=== PATIENT | female | born 1985 | race Caucasian/White ===

== ENCOUNTER 2018-01-14 11:04 | Observation (INO) | payer OTHER, MEDICAID ==
[2018-01-14 11:47] LABS: ADD MAN DIFF? NO
[2018-01-14 11:49] LABS: WHITE BLOOD COUNT 9.7 10^3/ul (4.8-10.8)
[2018-01-14 11:49] LABS: BASOPHIL # 0.1 10^3/ul (0.0-0.1); BASOPHILS % 1.2 % (0.0-2.0); EOSINOPHILS # 0.6 10^3/ul (0.0-0.5); EOSINOPHILS % 5.7 % (0.0-7.0); HEMATOCRIT 46.5 % (37.0-47.0); HEMOGLOBIN 14.5 g/dl (12.0-16.0); LYMPHOCYTES # 3.4 10^3/ul (0.8-2.9); MEAN CORPUSCULAR HGB CONC 31.2 g/dl (32.0-37.0); MEAN CORPUSCULAR VOLUME 89.9 fl (82.0-101.0); MEAN PLATELET VOLUME 9.8 fl (7.4-10.4); MONOCYTE # 0.6 10^3/ul (0.3-0.9); MONOCYTES % 6.5 % (0.0-11.0); NEUTROPHILS % 51.2 % (39.0-77.0); PLATELET COUNT 304 10^3/UL (140-415); RED BLOOD COUNT 5.17 10^6/ul (4.20-5.40); RED CELL DISTRIBUTION WIDTH 14.5 % (11.5-14.5)
[2018-01-14 12:06] LABS: ALANINE AMINOTRANSFERASE 47 IU/L (13-69); ALBUMIN 3.4 g/dl (3.3-4.9); ALBUMIN/GLOBULIN RATIO 1.41; ALKALINE PHOSPHATASE 59 IU/L (42-121); ANION GAP 12 (8-16); ASPARTATE AMINO TRANSFERASE 31 IU/L (15-46); BILIRUBIN,INDIRECT 0.7 mg/dl (0-1.1); BILIRUBIN,TOTAL 0.7 mg/dl (0.2-1.3); BLOOD UREA NITROGEN 16 mg/dl (7-20); CALCIUM 9.1 mg/dl (8.4-10.2); CARBON DIOXIDE 26 mmol/L (21-31); CHLORIDE 110 mmol/L (97-110); CREATININE 1.23 mg/dl (0.44-1.00); GLUCOSE 89 mg/dl (70-220); LIPASE 59 U/L (23-300); POTASSIUM 4.5 mmol/L (3.5-5.1); SODIUM 143 mmol/L (135-144); TOTAL PROTEIN 5.8 g/dl (6.1-8.1)
[2018-01-14 12:18] LABS: B-TYPE NATRIURETIC PEPTIDE 3750 PG/ML (0-125); TROPONIN-I 0.014 ng/ml (0.000-0.120)
[2018-01-14] MEDS ORDERED: morphine 4 MG/ML VIAL IV (14:08)
[2018-01-14] MEDS ORDERED: ONDANSETRON 4 MG INJ IV ×2 (14:08→18:30)
[2018-01-14] MEDS: ACETAMINOPHEN 500 MG TAB PO (14:16)
[2018-01-14 14:37] LABS: ADD UMIC YES; UR ASCORBIC ACID 40 mg/dL (NEGATIVE); UR BACTERIA FEW /HPF (NONE SEEN); UR BILIRUBIN (Dip) NEGATIVE (NEGATIVE); UR BLOOD (Dip) 3+ mg/dL (NEGATIVE); UR CLARITY SLIGHTLY CLOUDY (CLEAR); UR COLOR YELLOW (YELLOW); UR GLUCOSE (Dip) NEGATIVE (NEGATIVE); UR KETONES (Dip) NEGATIVE (NEGATIVE); UR LEUKOCYTE ESTERASE (Dip) 2+ Leu/ul (NEGATIVE); UR NITRITE (Dip) NEGATIVE (NEGATIVE); UR RBC 23 /HPF (0-5); UR SPECIFIC GRAVITY (Dip) 1.021 (1.003-1.030); UR SQUAMOUS EPITHELIAL CELL FEW /HPF (FEW); UR TOTAL PROTEIN (Dip) 1+ mg/dl (NEGATIVE); UR UROBILINOGEN (Dip) 1+ mg/dL (NEGATIVE); UR WBC 13 /HPF (0-5)
[2018-01-14] MEDS: CEPHALEXIN 500 MG CAP PO (15:39)
[2018-01-14] MEDS: FUROSEMIDE 40 MG INJ IV (17:12)
[2018-01-14] MEDS ORDERED: DOCUSATE SODIUM 100 MG CAP PO (18:30)
[2018-01-14] MEDS ORDERED: MAGNESIUM HYDROXIDE 30ML CUP PO (18:30)
[2018-01-14] MEDS ORDERED: BISACODYL 10 MG SUPP PR (18:30)
[2018-01-14] MEDS ORDERED: NACL 0.9% 3 ML SYG IV (18:30)
[2018-01-14] MEDS ORDERED: NITROGLYCERIN (SL) 0.4 MG TAB SL (18:30)
[2018-01-14] MEDS: ACETAMINOPHEN 325 MG TAB PO (19:02)
[2018-01-14] MEDS: LEVOFLOXACIN 500 MG TAB PO (19:03)
[2018-01-14] MEDS: FAMOTIDINE 20 MG TAB PO (20:37)
[2018-01-14] MEDS: morphine 2 MG INJ IV (20:42)
[2018-01-14] MEDS ORDERED: DIPHENHYDRAMINE 25 MG CAP PO (21:00)
[2018-01-15] MEDS: FUROSEMIDE 40 MG INJ IV (05:49)
[2018-01-15] MEDS: LEVOFLOXACIN 500 MG TAB PO (05:49)
[2018-01-15] MEDS: ACETAMINOPHEN 325 MG TAB PO (07:25)
[2018-01-15 08:13] LABS: ALANINE AMINOTRANSFERASE 44 IU/L (13-69); ALBUMIN 3.6 g/dl (3.3-4.9); ALKALINE PHOSPHATASE 59 IU/L (42-121); ANION GAP 14 (8-16); ASPARTATE AMINO TRANSFERASE 26 IU/L (15-46); BILIRUBIN,INDIRECT 0.8 mg/dl (0-1.1); BILIRUBIN,TOTAL 0.8 mg/dl (0.2-1.3); BLOOD UREA NITROGEN 15 mg/dl (7-20); CALCIUM 9.3 mg/dl (8.4-10.2); CARBON DIOXIDE 30 mmol/L (21-31); CHLORIDE 100 mmol/L (97-110); CREATININE 1.13 mg/dl (0.44-1.00); GLUCOSE 126 mg/dl (70-220); MAGNESIUM 1.9 mg/dl (1.7-2.5); POTASSIUM 3.9 mmol/L (3.5-5.1); SODIUM 140 mmol/L (135-144)
[2018-01-15] MEDS: FAMOTIDINE 20 MG TAB PO ×2 (08:49→20:37)
[2018-01-15] MEDS: ASPIRIN 81 MG TAB PO (08:50)
[2018-01-15] MEDS: LISINOPRIL 5 MG TAB PO (08:50)
[2018-01-15] MEDS: ENOXAPARIN 40 MG/0.4 ML SYG SC (08:52)
[2018-01-15] MEDS ORDERED: IOHEXOL 100 ML (15:29)
[2018-01-15] MEDS ORDERED: SOD CHLORIDE 0.9% 100 ML (15:29)
[2018-01-16] MEDS ORDERED: FUROSEMIDE 40 MG INJ IV (09:00)
== END 2018-01-15 21:00 | disposition home or self-care (01) ==
LOC: FTE 11:04 → MS4 18:17
DX: I50.9 Heart failure, unspecified (principal); N17.9 Acute kidney failure, unspecified; R21 Rash and other nonspecific skin eruption; F15.10 Other stimulant abuse, uncomplicated
CPT/HCPCS: 36415; 71045; 71275; 80053; 81001; 83690; 83735; 83880; 84484; 84703; 85025; 87086; 93005; 93306; 99285-25; G0378

== ENCOUNTER 2018-02-04 16:26 | Emergency (ER) | payer OTHER ==
[2018-02-04 16:57] LABS: ADD MAN DIFF? NO
[2018-02-04 17:04] LABS: BASOPHIL # 0.1 10^3/ul (0.0-0.1); BASOPHILS % 0.8 % (0.0-2.0); EOSINOPHILS # 0.3 10^3/ul (0.0-0.5); EOSINOPHILS % 3.8 % (0.0-7.0); HEMATOCRIT 44.7 % (37.0-47.0); HEMOGLOBIN 14.3 g/dl (12.0-16.0); LYMPHOCYTES % 32.6 % (15.0-51.0); MEAN CORPUSCULAR HEMOGLOBIN 28.4 pg (29.0-33.0); MEAN CORPUSCULAR VOLUME 88.9 fl (82.0-101.0); MEAN PLATELET VOLUME 9.6 fl (7.4-10.4); MONOCYTE # 0.6 10^3/ul (0.3-0.9); MONOCYTES % 6.2 % (0.0-11.0); NEUTROPHIL # 5.1 10^3/ul (1.6-7.5); NEUTROPHILS % 56.3 % (39.0-77.0); PLATELET COUNT 358 10^3/UL (140-415); RED BLOOD COUNT 5.03 10^6/ul (4.20-5.40); RED CELL DISTRIBUTION WIDTH 13.4 % (11.5-14.5)
[2018-02-04] MEDS: ASPIRIN 325 MG TAB PO (17:08)
[2018-02-04] MEDS ORDERED: ASPIRIN 81 MG TAB (17:10)
[2018-02-04 17:22] LABS: ANION GAP 14 (8-16); BLOOD UREA NITROGEN 17 mg/dl (7-20); CALCIUM 9.9 mg/dl (8.4-10.2); CARBON DIOXIDE 28 mmol/L (21-31); CHLORIDE 104 mmol/L (97-110); CREATININE 0.89 mg/dl (0.44-1.00); GLUCOSE 93 mg/dl (70-220); POTASSIUM 4.4 mmol/L (3.5-5.1); SODIUM 142 mmol/L (135-144)
[2018-02-04 17:28] LABS: D-DIMER 301.41 ng/ml (<460)
[2018-02-04 17:29] LABS: AMPHETAMINE/METHAMPHETAMINE Negative (NEGATIVE); BARBITURATES Negative (NEGATIVE); BENZODIAZEPINES Negative (NEGATIVE); CANNABINOIDS Negative (NEGATIVE); COCAINE Negative (NEGATIVE); OPIATES Negative (NEGATIVE)
[2018-02-04 17:31] LABS: B-TYPE NATRIURETIC PEPTIDE 1300 PG/ML (0-125)
[2018-02-04 17:34] LABS: TROPONIN-I < 0.010 ng/ml (0.000-0.120)
[2018-02-04 20:04] LABS: TROPONIN-I < 0.010 ng/ml (0.000-0.120)
== END 2018-02-04 20:58 | disposition home or self-care (01) ==
LOC: E/R 16:26
DX: R07.9 Chest pain, unspecified (principal); Z79.82 Long term (current) use of aspirin
CPT/HCPCS: 36415; 71045; 80048; 80307; 83880; 84484; 84703; 85025; 85378; 93005; 99285-25

== ENCOUNTER 2019-03-31 18:00 | Emergency (ER) | payer OTHER | END 2019-03-31 18:42 | disposition home or self-care (01) | LOC: E/R 18:00 | DX: S82.842A Displaced bimalleolar fracture of left lower leg, initial encounter for closed fracture (principal); I50.9 Heart failure, unspecified; X50.1XXA Overexertion from prolonged static or awkward postures, initial encounter; Y92.9 Unspecified place or not applicable; Z79.82 Long term (current) use of aspirin | CPT/HCPCS: 99282; Z7502 ==